=== PATIENT | male | born 1980 | race African-American/Black ===

== ENCOUNTER 2017-05-04 11:16 | Emergency (ER) | payer OTHER ==
[~2017-05-04] VITALS: Ht 172.7 cm; Wt 66.7 kg
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
[2017-05-04] MEDS ORDERED: NAPR500T8 PO (13:08)
[2017-05-04] MEDS ORDERED: CYCL10TA2 PO (13:08)
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
[2017-05-04 13:23] VITALS: BP 141/67
== END 2017-05-04 13:24 | disposition home or self-care (01) ==
LOC: ER 11:16
DX: M54.5 Low back pain (principal); M79.632 Pain in left forearm; V43.52XA Car driver injured in collision with other type car in traffic accident, initial encounter; Y93.I9 Activity, other involving external motion; Y92.410 Unspecified street and highway as the place of occurrence of the external cause; Y99.8 Other external cause status
CPT/HCPCS: 72100; 99284

== ENCOUNTER 2017-07-16 02:06 | Emergency (ER) | payer OTHER ==
[~2017-07-16] VITALS: Ht 172.7 cm; Wt 66.7 kg
[~2017-07-16 02:06] MED LIST: CYCL10TA2 PO; NAPR500T8 PO
[2017-07-16 02:31] VITALS: BP 142/97
--- NOTE | 2017-07-16 03:29 | PHYS DOC ---
Past Medical History Past Medical History: No Pertinent History Past Surgical History: No Surgical History Alcohol Use: None Drug Use: None Adult General Chief Complaint Chief Complaint: THUMB HPI HPI Patient is a 37 year old M who presents with left thumb pain for the past 5 days. Patient states that he is a right-handed individual but his left thumb on the radial side has some decreased sensation and pain associated with it. Patient called his family doctor and was told if symptoms get worse to go the emergency room. 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 Patient denies any trauma. Patient denies any pain or numbness and tingling to the forearm elbow or shoulder. Patient has no other complaints. Review of Systems Review of Systems GEN: Denies fevers, chills, sweats HEENT: Denies blurred vision, sore throat CV: Denies chest pain RESP: Denies shortness of air, cough GI: Denies n/v/d NEURO: Denies confusion, dizziness MSK: Left thumb pain Allergies Allergies Allergies Coded Allergies Type Severity Reaction Last Updated Verified No Known Drug Allergies 05/04/17 No Physical Exam Physical Exam GEN.: No apparent distress. Alert and oriented. HEENT: Head is normocephalic, atraumatic NECK: Supple. LUNGS: CTAB. HEART: RRR, S1, S2 present. Peripheral pulses intact ABDOMEN: Soft, nontender. Positive bowel sounds. EXTREMITIES: Without any cyanosis. Decreased sensation to the radial side of the left thumb, capillary refill to the left thumb less than 2 seconds, good range of motion with minimal pain, good radial pulse on the left, no pain or tenderness or decreased range of motion to the left elbow or shoulder NEUROLOGIC: Normal speech, normal tone PSYCHIATRIC: Normal affect, normal mood. SKIN: No ulcerations Current Patient Data Vital Signs Vital Signs Date Time Temp Pulse Resp B/P (MAP) Pulse Ox O2 Delivery O2 Flow Rate FiO2 07/16/17 02:31 98.4 66 20 142/97 (112) 98 Room Air 98.4 EKG EKG [] Radiology/Procedures Radiology/Procedures X-ray left hand shows no obvious fracture of the thumb[] Course & Med Decision Making Course & Med Decision Making Pertinent Labs and Imaging studies reviewed. (See chart for details) ED course: Patient was seen and examined emergency room x-ray of the left hand was ordered 0326: Patient was updated on x-ray findings and recommended a follow-up as PCP in one to 2 days for further evaluation and management of his paresthesias to his left thumb MDM: After reviewing the chart, CC/HPI/PMH, physical exam, [radiological results], I do not believe the patient has a significant traumatic injury to his left thumb warranting further workup and/or admission at this time. Patient is stable for discharge and follow-up as PCP. Additional verbal discharge instructions were provided to the patient and that if symptoms get worse or any new symptoms arise that are worrisome to the patient he is to return to the emergency room immediately [] Dragon Disclaimer Dragon Disclaimer This electronic medical record was generated, in whole or in part, using a voice recognition dictation system. Departure Departure Impression: Primary Impression: Pain of left thumb Additional Impression: Paresthesia Disposition: 01 HOME, SELF-CARE Condition: IMPROVED Referrals: PAUL FOUNTAIN MD (PCP) Patient Instructions: Finger Sprain Additional Instructions: Please follow-up with your family physician in the next one to 2 days and return if symptoms increase Problem Qualifiers CASTILLO OTOOLE DO Jul 16, 2017 03:29
--- NOTE | 2017-07-16 07:21 | RAD ---
EXAM: Left hand 3 views. HISTORY: Thumb numbness. COMPARISON: None. FINDINGS: No fractures are identified. There is mild osteoarthritis at the 2nd metacarpophalangeal joint. Other joint spaces and alignment are maintained. IMPRESSION: 1. 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
== END 2017-07-16 03:58 | disposition home or self-care (01) ==
LOC: ER 02:06
DX: M79.645 Pain in left finger(s) (principal); R20.2 Paresthesia of skin
CPT/HCPCS: 73130; 99284

== ENCOUNTER 2018-05-04 17:26 | Emergency (ER) | payer OTHER ==
[2018-05-04] MEDS: TETRACAINE 0.5% OPHTH SOLUTION 4ML BOTTLE. OS (19:47)
[2018-05-04] MEDS: FLUORESCEIN OPHTH TEST STRIP. OS (19:47)
== END 2018-05-04 20:33 | disposition home or self-care (01) ==
LOC: ER 17:26
DX: H57.8 Other specified disorders of eye and adnexa (principal); F17.210 Nicotine dependence, cigarettes, uncomplicated
CPT/HCPCS: 99283